=== PATIENT | male | born 1960 | race African-American/Black ===

== ENCOUNTER 2017-04-23 05:08 | Inpatient (IN) ==
[2017-04-23] MEDS ORDERED: VANCOMYCIN 1,000 MG VIAL ONE (05:59)
[2017-04-23] MEDS ORDERED: ceFAZolin 1,000 MG VIAL ONE ×2 (05:59→07:45)
[2017-04-23] MEDS ORDERED: VANCOMYCIN INJ 1,000 MG in SODIUM CHLORIDE 0.9% 250 ML IV ONE (06:00)
[2017-04-23] MEDS ORDERED: FAMOTIDINE 20 MG TABLET PO ONE (06:09)
[2017-04-23] MEDS ORDERED: LORazepam 0.5 MG TABLET PO ONE (06:09)
[2017-04-23] MEDS ORDERED: LORazepam 0.5 MG TABLET ONE (06:19)
[2017-04-23] MEDS ORDERED: FAMOTIDINE 20 MG TABLET ONE (06:20)
[2017-04-23] MEDS ORDERED: LACTATED RINGERS 1,000 ML IV SCH (06:30)
[2017-04-23] MEDS ORDERED: TRANEXAMIC ACID 1,000 MG/10 ML VIAL IV ONE (06:52)
[2017-04-23] MEDS ORDERED: oxyCODONE IR 5 MG TABLET PO PRN ×2 (07:30)
[2017-04-23] MEDS ORDERED: diphenhydrAMINE CAP 25 MG CAPSULE PO PRN (07:30)
[2017-04-23] MEDS ORDERED: MORPHINE 2 MG/1 ML SYRINGE IV PRN (07:30)
[2017-04-23] MEDS ORDERED: MAGNESIUM HYDROXIDE SUSP 30 ML UDCUP PO PRN (07:30)
[2017-04-23] MEDS ORDERED: ZALEPLON 5 MG CAPSULE PO PRN (07:30)
[2017-04-23] MEDS ORDERED: ONDANSETRON 4 MG/2 ML VIAL IV PRN (07:30)
[2017-04-23] MEDS ORDERED: GLUCAGON 1 MG VIAL IM PRN (07:33)
[2017-04-23] MEDS ORDERED: DEXTROSE 50% 25 GM/50 ML VIAL IV PRN (07:33)
[2017-04-23] MEDS ORDERED: BACITRACIN OINT 0.9 GM PACK TOP ONE (07:45)
[2017-04-23] MEDS ORDERED: fentaNYL 100 MCG/2 ML VIAL ONE (08:53)
[2017-04-23] MEDS ORDERED: ACETAMINOPHEN 1,000 MG/100 ML VIAL IV ONE (08:54)
[2017-04-23] MEDS ORDERED: KETAMINE 500 MG/10 ML VIAL ONE (08:55)
[2017-04-23] MEDS ORDERED: MIDAZOLAM 2 MG/2 ML VIAL ONE ×2 (08:55→08:56)
[2017-04-23] MEDS ORDERED: PROPOFOL 200 MG/20 ML VIAL IV ONE (08:56)
[2017-04-23] MEDS ORDERED: ONDANSETRON 4 MG/2 ML VIAL ONE (08:56)
[2017-04-23 09:17] LABS: Apearance,Urine CLEAR (Clear); Bacteria,Urine Occasional /HPF (Few); Bilirubin,Urine Negative (Negative); Blood, Urine Negative (Negative); Glucose,Urine (UA) Negative (Negative); Ketones,Urine Negative (Negative); Mucus,Urine Occasional /LPF (Occasional); Nitrite,Urine Negative (Negative); Protein,Urine Negative; RBC,Urine <1 /HPF (0-4); Squamous Epithelial Cell,Urine Occasional /HPF (0-10); Urine Color Straw (Yellow); Urine Urobilinogen < 2.0 EU/DL (0.2-1.0); WBC,Urine <1 /HPF (0-6)
[2017-04-23] MEDS ORDERED: LABETALOL 20 MG/4 ML SYRINGE IV ONE (09:31)
[2017-04-23] MEDS: KETOROLAC 30 MG/1 ML VIAL IV SCH ×3 (10:21→20:03)
[2017-04-23 10:36] LABS: Basophils % 0.6 % (0.0-0.8); Eosinophils # 0.1 10*3/uL (0.0-0.87); Eosinophils % 1.6 % (0.00-10.9); Hematocrit 34.3 VOL% (42.0-52.0); Hemoglobin 11.7 GM/DL (14.0-18.0); Immature Granulocytes % 0.3 %; Immature Granulocytes Absolute 0.02 #; Lymphocytes # 1.9 10*3/uL (1.4-4.0); Lymphocytes % 31.3 % (21.2-54.2); Mean Corpuscular HGB Conc 34.1 GM/DL (32-36); Mean Corpuscular Hemoglobin 31 PG (27-34); Mean Corpuscular Volume 90.7 FL (87-102); Mean Platelet Volume 10.6 FL (9.6-12.0); Monocytes # 0.4 10*3/uL (0.11-0.8); Neutrophils # 3.7 10*3/uL (1.4-7.4); Neutrophils % 59.2 % (38.7-73.9); Platelet Count 145 T/CUMM (130-400); Red Blood Count 3.78 MC/CUMM (3.8-5.5); Red Cell Distribution Width 13.5 % (9.3-17.3); White Blood Count 6.2 T/CUMM (4-12)
[2017-04-23 11:16] LABS: Calcium 8.7 MG/DL (8.5-10.1); Osmolality,Calculated 281.3 MOS/KG (273-304); Potassium 4.1 MMOL/L (3.5-5.1)
[2017-04-23] MEDS: INSULIN LISPRO 100 UNIT/ML SUBCUT SCH ×3 (11:30→21:00)
[2017-04-23] MEDS: LACTATED RINGERS 1,000 ML IV SCH ×3 (14:08→21:01)
[2017-04-23] MEDS: ACETAMINOPHEN 500 MG TABLET PO SCH ×2 (14:46→20:02)
[2017-04-23] MEDS: GABAPENTIN 600 MG TABLET PO SCH ×3 (14:47→20:26)
[2017-04-23] MEDS: DOCUSATE SODIUM 100 MG CAPSULE PO SCH ×2 (14:48→20:26)
[2017-04-23] MEDS: MORPHINE 2 MG/1 ML SYRINGE IV PRN ×2 (14:59→19:45)
[2017-04-23] MEDS: ceFAZolin 2,000 MG in PREMIX 1 EACH IV SCH ×2 (19:34→20:29)
[2017-04-23] MEDS: PRAVASTATIN 40 MG TABLET PO SCH (20:26)
[2017-04-24] MEDS: ACETAMINOPHEN 500 MG TABLET PO SCH ×2 (00:04→05:12)
[2017-04-24] MEDS: MORPHINE 2 MG/1 ML SYRINGE IV PRN (01:32)
[2017-04-24] MEDS: KETOROLAC 30 MG/1 ML VIAL IV SCH (01:34)
[2017-04-24] MEDS: LACTATED RINGERS 1,000 ML IV SCH ×2 (01:35→05:15)
[2017-04-24] MEDS: FONDAPARINUX 2.5 MG/0.5 ML SYRINGE SUBCUT SCH (05:12)
[2017-04-24 07:13] LABS: Calcium 7.9 MG/DL (8.5-10.1); Osmolality,Calculated 282.5 MOS/KG (273-304)
[2017-04-24] MEDS ORDERED: ACETAMINOPHEN 325 MG TABLET PO PRN (07:31)
[2017-04-24 07:55] LABS: Basophils % 0.4 % (0.0-0.8); Eosinophils # 0.1 10*3/uL (0.0-0.87); Eosinophils % 2.7 % (0.00-10.9); Hematocrit 30.4 VOL% (42.0-52.0); Hemoglobin 10.5 GM/DL (14.0-18.0); Immature Granulocytes % 0.2 %; Immature Granulocytes Absolute 0.01 #; Lymphocytes # 1.5 10*3/uL (1.4-4.0); Mean Corpuscular HGB Conc 34.5 GM/DL (32-36); Mean Corpuscular Hemoglobin 31 PG (27-34); Mean Corpuscular Volume 89.9 FL (87-102); Mean Platelet Volume 10.3 FL (9.6-12.0); Monocytes # 0.4 10*3/uL (0.11-0.8); Monocytes % 7.3 % (1.7-12.7); Neutrophils # 2.8 10*3/uL (1.4-7.4); Neutrophils % 57.4 % (38.7-73.9); Platelet Count 125 T/CUMM (130-400); Red Blood Count 3.38 MC/CUMM (3.8-5.5); Red Cell Distribution Width 13.5 % (9.3-17.3); White Blood Count 4.8 T/CUMM (4-12)
[2017-04-24] MEDS: INSULIN LISPRO 100 UNIT/ML SUBCUT SCH ×4 (08:05→20:39)
[2017-04-24] MEDS: INSULIN GLARGINE 100 UNIT/ML SUBCUT SCH (08:06)
[2017-04-24] MEDS: DOCUSATE SODIUM 100 MG CAPSULE PO SCH ×2 (08:06→20:38)
[2017-04-24] MEDS: GABAPENTIN 600 MG TABLET PO SCH ×3 (08:06→20:38)
[2017-04-24] MEDS: sitaGLIPtin 100 MG TABLET PO SCH (08:06)
[2017-04-24] MEDS: CELECOXIB 200 MG CAPSULE PO SCH (12:36)
[2017-04-24] MEDS: PRAVASTATIN 40 MG TABLET PO SCH (20:38)
[2017-04-25] MEDS: FONDAPARINUX 2.5 MG/0.5 ML SYRINGE SUBCUT SCH (04:52)
[2017-04-25 05:40] LABS: Basophils % 0.5 % (0.0-0.8); Eosinophils # 0.1 10*3/uL (0.0-0.87); Eosinophils % 2.1 % (0.00-10.9); Hematocrit 30.8 VOL% (42.0-52.0); Hemoglobin 10.7 GM/DL (14.0-18.0); Immature Granulocytes % 0.7 %; Immature Granulocytes Absolute 0.04 #; Lymphocytes # 1.4 10*3/uL (1.4-4.0); Lymphocytes % 23.1 % (21.2-54.2); Mean Corpuscular HGB Conc 34.7 GM/DL (32-36); Mean Corpuscular Hemoglobin 31 PG (27-34); Mean Corpuscular Volume 89.5 FL (87-102); Monocytes # 0.4 10*3/uL (0.11-0.8); Monocytes % 6.3 % (1.7-12.7); Neutrophils # 4.1 10*3/uL (1.4-7.4); Neutrophils % 67.3 % (38.7-73.9); Platelet Count 143 T/CUMM (130-400); Red Blood Count 3.44 MC/CUMM (3.8-5.5); Red Cell Distribution Width 13.7 % (9.3-17.3); White Blood Count 6.1 T/CUMM (4-12)
[2017-04-25] MEDS: INSULIN LISPRO 100 UNIT/ML SUBCUT SCH ×4 (08:09→21:21)
[2017-04-25] MEDS: INSULIN GLARGINE 100 UNIT/ML SUBCUT SCH (08:10)
[2017-04-25] MEDS: GABAPENTIN 600 MG TABLET PO SCH ×3 (08:10→21:21)
[2017-04-25] MEDS: CELECOXIB 200 MG CAPSULE PO SCH (08:10)
[2017-04-25] MEDS: sitaGLIPtin 100 MG TABLET PO SCH (08:11)
[2017-04-25] MEDS: DOCUSATE SODIUM 100 MG CAPSULE PO SCH ×2 (08:11→21:21)
[2017-04-25] MEDS: PRAVASTATIN 40 MG TABLET PO SCH (21:21)
[2017-04-26 03:39] LABS: Basophils % 0.5 % (0.0-0.8); Eosinophils # 0.3 10*3/uL (0.0-0.87); Eosinophils % 4.5 % (0.00-10.9); Hematocrit 28.8 VOL% (42.0-52.0); Hemoglobin 9.9 GM/DL (14.0-18.0); Immature Granulocytes % 0.8 %; Immature Granulocytes Absolute 0.05 #; Lymphocytes # 1.5 10*3/uL (1.4-4.0); Lymphocytes % 24.6 % (21.2-54.2); Mean Corpuscular HGB Conc 34.4 GM/DL (32-36); Mean Corpuscular Hemoglobin 31 PG (27-34); Mean Corpuscular Volume 90.6 FL (87-102); Mean Platelet Volume 11.7 FL (9.6-12.0); Monocytes # 0.4 10*3/uL (0.11-0.8); Monocytes % 6.3 % (1.7-12.7); Neutrophils # 3.9 10*3/uL (1.4-7.4); Neutrophils % 63.3 % (38.7-73.9); Platelet Count 142 T/CUMM (130-400); Red Blood Count 3.18 MC/CUMM (3.8-5.5); Red Cell Distribution Width 13.7 % (9.3-17.3); White Blood Count 6.2 T/CUMM (4-12)
[2017-04-26 03:59] LABS: Calcium 8.6 MG/DL (8.5-10.1)
[2017-04-26] MEDS: FONDAPARINUX 2.5 MG/0.5 ML SYRINGE SUBCUT SCH (05:40)
[2017-04-26] MEDS: sitaGLIPtin 100 MG TABLET PO SCH (09:05)
[2017-04-26] MEDS: CELECOXIB 200 MG CAPSULE PO SCH (09:05)
[2017-04-26] MEDS: GABAPENTIN 600 MG TABLET PO SCH (09:05)
[2017-04-26] MEDS: DOCUSATE SODIUM 100 MG CAPSULE PO SCH (09:06)
[2017-04-26] MEDS: INSULIN LISPRO 100 UNIT/ML SUBCUT SCH ×2 (09:10→12:46)
[2017-04-26] MEDS: INSULIN GLARGINE 100 UNIT/ML SUBCUT SCH (09:10)
[2017-04-26 11:39] VITALS: BP 130/64
== END 2017-04-26 13:35 | disposition home or self-care (01) | DRG 301 ==
LOC: N.SDSINP 05:08 → N.3E 08:07
PROVIDERS: ADMIT Orthopaedic Surgery; ATTEND Orthopaedic Surgery

== ENCOUNTER 2018-05-28 05:08 | Inpatient (IN) ==
[2018-05-28] MEDS ORDERED: VANCOMYCIN 1,000 MG VIAL ONE (05:50)
[2018-05-28] MEDS ORDERED: VANCOMYCIN INJ 1,000 MG in SODIUM CHLORIDE 0.9% 250 ML IV ONE ×2 (06:00→17:49)
[2018-05-28] MEDS ORDERED: ceFAZolin 2,000 MG in PREMIX 1 EACH IV ONE (06:00)
[2018-05-28] MEDS ORDERED: ROPIVACAINE 0.5% 30 ML VIAL ONE (06:05)
[2018-05-28] MEDS ORDERED: TRANEXAMIC ACID 1,000 MG/10 ML VIAL ONE (06:05)
[2018-05-28] MEDS ORDERED: BUPIVACAINE SPINAL 0.75% 2 ML AMP SPINAL ONE (06:05)
[2018-05-28] MEDS ORDERED: LIDOCAINE 1% 5 ML VIAL ONE (06:05)
[2018-05-28] MEDS ORDERED: ACETAMINOPHEN 500 MG TABLET ONE (06:20)
[2018-05-28] MEDS ORDERED: GABAPENTIN 400 MG CAPSULE ONE (06:20)
[2018-05-28] MEDS ORDERED: ACETAMINOPHEN 500 MG TABLET PO ONE (06:30)
[2018-05-28] MEDS ORDERED: LACTATED RINGERS 1,000 ML IV SCH (06:30)
[2018-05-28] MEDS ORDERED: GABAPENTIN 400 MG CAPSULE PO ONE (06:30)
[2018-05-28] MEDS: LACTATED RINGERS 1,000 ML IV SCH (09:31)
[2018-05-28] MEDS ORDERED: oxyCODONE/ACETAMINOPHEN 5-325 MG TABLET PO PRN ×2 (09:48)
[2018-05-28] MEDS ORDERED: HYDROmorphone 2 MG/1 ML VIAL IV PRN ×2 (09:48)
[2018-05-28] MEDS ORDERED: GLUCAGON 1 MG VIAL IM PRN (09:48)
[2018-05-28] MEDS ORDERED: oxyCODONE IR 5 MG TABLET PO PRN ×2 (09:48)
[2018-05-28] MEDS ORDERED: diphenhydrAMINE CAP 25 MG CAPSULE PO PRN (09:48)
[2018-05-28] MEDS ORDERED: ONDANSETRON 4 MG/2 ML VIAL IV PRN (09:48)
[2018-05-28] MEDS ORDERED: DEXTROSE 50% 25 GM/50 ML SYRINGE IV PRN (09:48)
[2018-05-28] MEDS ORDERED: ZALEPLON 5 MG CAPSULE PO PRN (09:48)
[2018-05-28] MEDS ORDERED: MAGNESIUM HYDROXIDE SUSP 30 ML UDCUP PO PRN (09:48)
[2018-05-28] MEDS ORDERED: KETOROLAC 30 MG/1 ML VIAL ONE (10:13)
[2018-05-28] MEDS: KETOROLAC 30 MG/1 ML VIAL IV SCH ×3 (10:15→22:48)
[2018-05-28] MEDS ORDERED: fentaNYL 100 MCG/2 ML VIAL ONE (12:51)
[2018-05-28] MEDS ORDERED: MIDAZOLAM 2 MG/2 ML VIAL ONE (12:51)
[2018-05-28] MEDS: INSULIN LISPRO 100 UNIT/ML SUBCUT SCH ×3 (12:52→20:42)
[2018-05-28] MEDS ORDERED: LACTATED RINGERS 1,000 ML IV ONE (12:52)
[2018-05-28] MEDS ORDERED: PROPOFOL 500 MG/50 ML BOTTLE IV ONE (12:52)
[2018-05-28] MEDS: ACETAMINOPHEN 500 MG TABLET PO SCH ×2 (13:11→20:42)
[2018-05-28] MEDS: ceFAZolin 2,000 MG in PREMIX 1 EACH IV SCH ×2 (13:14→22:48)
[2018-05-28] MEDS ORDERED: INSULIN GLARGINE 100 UNIT/ML SUBCUT SCH (18:00)
[2018-05-28] MEDS: sitaGLIPtin 100 MG TABLET PO SCH (20:41)
[2018-05-28] MEDS: DOCUSATE SODIUM 100 MG CAPSULE PO SCH (20:41)
[2018-05-28] MEDS: SIMVASTATIN 20 MG TABLET PO SCH (20:41)
[2018-05-28] MEDS: GABAPENTIN 600 MG TABLET PO SCH (20:42)
[2018-05-29] MEDS: LACTATED RINGERS 1,000 ML IV SCH ×3 (01:46→09:32)
[2018-05-29] MEDS: ACETAMINOPHEN 500 MG TABLET PO SCH ×2 (01:47→09:42)
[2018-05-29] MEDS: KETOROLAC 30 MG/1 ML VIAL IV SCH (04:41)
[2018-05-29 05:28] LABS: Basophils % 0.5 % (0.0-0.8); Eosinophils # 0.1 10*3/uL (0.0-0.87); Hematocrit 32.7 VOL% (42.0-52.0); Hemoglobin 10.8 GM/DL (14.0-18.0); Immature Granulocytes % 0.5 %; Immature Granulocytes Absolute 0.02 #; Lymphocytes # 1.1 10*3/uL (1.4-4.0); Lymphocytes % 24.5 % (21.2-54.2); Mean Corpuscular Hemoglobin 31 PG (27-34); Mean Corpuscular Volume 93.2 FL (87-102); Mean Platelet Volume 11.3 FL (9.6-12.0); Monocytes # 0.5 10*3/uL (0.11-0.8); Monocytes % 10.5 % (1.7-12.7); Neutrophils # 2.6 10*3/uL (1.4-7.4); Platelet Count 157 T/CUMM (130-400); Red Blood Count 3.51 MC/CUMM (3.8-5.5); Red Cell Distribution Width 13.6 % (9.3-17.3); White Blood Count 4.3 T/CUMM (4-12)
[2018-05-29 05:44] LABS: Calcium 8.1 MG/DL (8.5-10.1); Osmolality,Calculated 285.4 MOS/KG (273-304)
[2018-05-29] MEDS: FONDAPARINUX 2.5 MG/0.5 ML SYRINGE SUBCUT SCH (06:45)
[2018-05-29] MEDS: INSULIN LISPRO 100 UNIT/ML SUBCUT SCH ×4 (09:52→21:37)
[2018-05-29] MEDS: DOCUSATE SODIUM 100 MG CAPSULE PO SCH ×2 (09:52→21:36)
[2018-05-29] MEDS: GABAPENTIN 600 MG TABLET PO SCH ×2 (09:52→21:36)
[2018-05-29] MEDS: sitaGLIPtin 100 MG TABLET PO SCH (09:52)
[2018-05-29] MEDS ORDERED: INSULIN GLARGINE 100 UNIT/ML SUBCUT SCH (21:00)
[2018-05-29] MEDS: SIMVASTATIN 20 MG TABLET PO SCH (21:36)
[2018-05-29] MEDS: CELECOXIB 200 MG CAPSULE PO SCH (21:36)
[2018-05-30 06:00] LABS: Basophils % 0.5 % (0.0-0.8); Eosinophils # 0.1 10*3/uL (0.0-0.87); Eosinophils % 1.7 % (0.00-10.9); Hematocrit 30.3 VOL% (42.0-52.0); Hemoglobin 9.8 GM/DL (14.0-18.0); Immature Granulocytes % 0.5 %; Immature Granulocytes Absolute 0.03 #; Lymphocytes # 1.5 10*3/uL (1.4-4.0); Mean Corpuscular HGB Conc 32.3 GM/DL (32-36); Mean Corpuscular Hemoglobin 31 PG (27-34); Mean Corpuscular Volume 94.4 FL (87-102); Mean Platelet Volume 11.7 FL (9.6-12.0); Monocytes # 0.6 10*3/uL (0.11-0.8); Monocytes % 8.8 % (1.7-12.7); Neutrophils # 4.1 10*3/uL (1.4-7.4); Neutrophils % 64.5 % (38.7-73.9); Platelet Count 140 T/CUMM (130-400); Red Blood Count 3.21 MC/CUMM (3.8-5.5); Red Cell Distribution Width 13.7 % (9.3-17.3); White Blood Count 6.4 T/CUMM (4-12)
[2018-05-30] MEDS: FONDAPARINUX 2.5 MG/0.5 ML SYRINGE SUBCUT SCH (06:36)
[2018-05-30] MEDS: INSULIN LISPRO 100 UNIT/ML SUBCUT SCH ×3 (08:41→16:55)
[2018-05-30] MEDS: GABAPENTIN 600 MG TABLET PO SCH (09:50)
[2018-05-30] MEDS: CELECOXIB 200 MG CAPSULE PO SCH (09:59)
[2018-05-30] MEDS: DOCUSATE SODIUM 100 MG CAPSULE PO SCH (09:59)
[2018-05-30] MEDS: sitaGLIPtin 100 MG TABLET PO SCH (10:00)
[2018-05-30 17:50] VITALS: BP 111/71
== END 2018-05-30 18:25 | disposition home or self-care (01) | DRG 302 ==
LOC: N.OR 05:08 → N.SDSINP 05:08 → N.3E 09:11
PROVIDERS: ADMIT Orthopaedic Surgery; ATTEND Orthopaedic Surgery